=== PATIENT | male | born 1980 | race Caucasian/White ===

== ENCOUNTER 2018-07-15 07:52 | Outpatient (CLI) | payer OTHER ==
[2018-07-15] MEDS ORDERED: IBUP-1223 PO (08:24)
[2018-07-15] MEDS ORDERED: MULT-224 PO (08:24)
[2018-07-21] MEDS ORDERED: LIDOCAINE 1%-EPI 1:100K, 20ML ONE (09:13)
[2018-07-21] MEDS ORDERED: BUPIVACAINE/PF 0.5% ONE (09:14)
== END 2018-07-15 23:59 | disposition home or self-care (01) ==
LOC: STAR 07:52
PROVIDERS: ATTEND Orthopaedic Surgery
DX: Z02.9 Encounter for administrative examinations, unspecified (principal)

== ENCOUNTER 2018-07-21 07:31 | Day surgery (SDC) | payer OTHER ==
[~2018-07-21] VITALS: Ht 182.9 cm; Wt 85.0 kg
[~2018-07-21 07:31] MED LIST: IBUP-1223 PO; MULT-224 PO
[2018-07-21] MEDS ORDERED: MIDAZOLAM 1 MG/ML, 2ML ONE (07:51)
[2018-07-21] MEDS ORDERED: FENTANYL PF 250 MCG/5ML ONE (07:51)
[2018-07-21 07:57] VITALS: BP 128/84
[2018-07-21] MEDS ORDERED: LACTATED RINGERS 1,000 ML IV SCH (08:07)
[2018-07-21] MEDS ORDERED: ONDANSETRON 2MG/ML, 2ML ONE (09:19)
[2018-07-21] MEDS ORDERED: ROCURONIUM 10 MG/ML,10ML ONE (09:19)
[2018-07-21] MEDS ORDERED: DEXAMETHASONE 4 MG/ML, 1ML ONE (09:19)
[2018-07-21] MEDS ORDERED: PROPOFOL 10 MG/ML, 20ML ONE (09:19)
[2018-07-21] MEDS ORDERED: CEFAZOLIN 1,000 MG ONE (09:19)
[2018-07-21] MEDS ORDERED: PROMETHAZINE 25 MG/ML, 1ML IV PRN (10:00)
[2018-07-21] MEDS ORDERED: hydrALAzine 20 MG/ML, 1ML IV PRN (10:00)
[2018-07-21] MEDS ORDERED: KETOROLAC 30 MG/1 ML IV PRN (10:00)
[2018-07-21] MEDS ORDERED: FENTANYL PF 100 MCG/2ML IV PRN (10:00)
[2018-07-21] MEDS ORDERED: LABETALOL 5MG/ML, 20ML IV PRN (10:00)
[2018-07-21] MEDS ORDERED: ACETAMINOPHEN 325 MG TABLET PO PRN (10:00)
[2018-07-21] MEDS ORDERED: ALBUTEROL SULFATE 2.5 MG/3 ML NPPB PRN (10:00)
[2018-07-21] MEDS ORDERED: MIDAZOLAM 1 MG/ML, 2ML IV PRN (10:00)
[2018-07-21] MEDS ORDERED: MEPERIDINE/PF 25MG/0.5ML IVPush PRN (10:00)
[2018-07-21] MEDS ORDERED: HYDROmorphone 2 MG/ML, 1ML IVPush PRN (10:00)
[2018-07-21] MEDS ORDERED: OXYcodone 5 MG/5 ML ORAL.SOL UDC PO PRN (10:00)
[2018-07-21] MEDS ORDERED: EPINEPHRINE 1 MG/ML, 1ML ONE (11:13)
[2018-07-21] MEDS ORDERED: MEPERIDINE/PF 50 MG/ML ONE (11:46)
[2018-07-21] MEDS ORDERED: ACETAMINOPHEN 650 MG/20.3 ML UDC ONE (12:13)
[2018-07-21] MEDS ORDERED: OXYcodone 5 MG/5 ML ORAL.SOL UDC ONE (12:13)
[2018-07-21] MEDS ORDERED: MEPERIDINE/PF 25MG/0.5ML ONE (12:14)
[2018-07-21] MEDS ORDERED: PROMETHAZINE 25 MG/ML, 1ML ONE (12:23)
== END 2018-07-21 14:05 | disposition home or self-care (01) ==
LOC: OUT 07:31
PROVIDERS: ATTEND Orthopaedic Surgery
DX: S43.431A Superior glenoid labrum lesion of right shoulder, initial encounter (principal); M75.111 Incomplete rotator cuff tear or rupture of right shoulder, not specified as traumatic; M75.51 Bursitis of right shoulder; M75.41 Impingement syndrome of right shoulder; M19.011 Primary osteoarthritis, right shoulder; X58.XXXA Exposure to other specified factors, initial encounter; Y93.89 Activity, other specified; Y92.89 Other specified places as the place of occurrence of the external cause; Y99.8 Other external cause status; Z87.891 Personal history of nicotine dependence; Z72.89 Other problems related to lifestyle; Z98.890 Other specified postprocedural states
CPT/HCPCS: 29807; 29823; 29824; 29826; 64415; C1713; J0171; J0690; J1100; J2175; J2250; J2405; J2550; J2704; J3010; J3490; J7120